=== PATIENT | female | born 1985 | race Two or more races ===

== ENCOUNTER 2025-11-02 09:58 | Emergency (ER) | payer OTHER ==
[~2025-11-02] VITALS: Ht 172.7 cm; Wt 65.3 kg
[2025-11-02] MEDS ORDERED: ORPHENADRINE CITRATE 30 MG/ML AMPUL ONE (10:54)
[2025-11-02] MEDS ORDERED: KETOROLAC TROMETHAMINE 30 MG VIAL ONE (10:54)
[2025-11-02] MEDS ORDERED: DEXAMETHASONE SODIUM PHOSPHATE 4 MG/ML VIAL ONE (10:55)
[2025-11-02] MEDS ORDERED: DEXAMETHASONE SODIUM PHOSPHATE 4 MG/ML VIAL IM ONE (11:00)
[2025-11-02] MEDS ORDERED: ORPHENADRINE CITRATE 30 MG/ML AMPUL IM ONE (11:00)
[2025-11-02] MEDS ORDERED: KETOROLAC TROMETHAMINE 30 MG VIAL IM ONE (11:00)
[2025-11-02] MEDS ORDERED: MORPHINE SULFATE 4 MG/ML VIAL IV ONE (14:15)
[2025-11-02] MEDS ORDERED: NORFLEX100MG PO (16:44)
[2025-11-02] MEDS ORDERED: KETO10TA2 PO (16:44)
[2025-11-02] MEDS ORDERED: MEDROLPACK PO (16:44)
[2025-11-02] MEDS ORDERED: NEURONTIN300 MG PO (16:44)
== END 2025-11-02 17:57 | disposition home or self-care (01) ==
LOC: ER 09:58
DX: M51.27 Other intervertebral disc displacement, lumbosacral region (principal); M51.369 Other intervertebral disc degeneration, lumbar region without mention of lumbar back pain or lower extremity pain; I10 Essential (primary) hypertension; Z88.8 Allergy status to other drugs, medicaments and biological substances